=== PATIENT | female | born 1995 ===

== ENCOUNTER 2025-07-14 14:30 | Outpatient (AMB) | payer MEDICAID, SELFPAY ==
[2025-07-14 14:59] VITALS: BP 118/81; PULSE 76; RESP 16; TEMP 36.6; O2SAT 98; BMI 28.7
--- NOTE | 2025-07-14 14:59 | OBCLNT_ITS ---
Vital Signs 07/14/25 14:59 Height 1.6 m Height Method Stated Weight 73.482 kg Weight Measurement Method Standing Scale BMI 28.7 BP 118/81 Blood Pressure Source Automatic Cuff Blood Pressure Location Left Upper Arm Position Sitting Respiration 16 Pulse 76 Pulse Source Monitor Temp 97.8 F Temp Source Oral Pulse Oximetry (%) 98 Oxygen Delivery Method Room Air Allergies/Home Meds Allergies & Medications Allergies No Known Allergies Allergy (Unknown, Verified 07/14/25 15:00) Medication Reconciliation No Known Home Medications 07/14/25 [History Confirmed 07/14/25] Intake Visit Data Collection New Patient or Established: Established Patient (seen at [facility] within 3 years) Reason for Visit:: INITIAL CARE Seen by Clinical Staff ONLY (RN/MA): No Cathode Washer Required: No Do You Feel Safe at Home: Yes Authorities Contacted: N/A PCP or OBGYN visit in last 3 months: Yes Hx Now: Yes Are you currently on any form of Control: No Last menstrual period: 05/26/25 Pain Present Currently: Yes Pain Location: Abdomen and Back Pain Scale Used: Stern-Muir/Numerical Pain scale:: 6 Smoking Status Smoking Status: Never smoker Questionnaires Covid-19 Vaccine Questionnaire Has patient been vacinated for Covid-19 Have you been vacinated for Covid-19: Yes PHQ-9 PHQ-2 Over the last 2 weeks, how often have you been bothered by any of the following problems? 1. Little interest or pleasure in doing things: not at all 2. Feeling down, depressed, or hopeless: not at all Total score: 0 PHQ-9 3. Trouble falling or staying asleep, or sleeping too much: Not at all 4. Feeling tired or having little energy: Not at all 5. Poor appetite or overeating: Not at all 6. Feeling bad about yourself - or that you are a failure or have let yourself or your family down: Not at all 7. Trouble concentrating on things, such as reading the newspaper or watching television: Not at all 8. Moving or speaking so slowly that other people could have noticed? - Or the opposite - being so fidgety or restless that you have been moving around a lot more than usual: not at all 9. Thoughts that you would be better off or of hurting yourself in some way: Not at all Total score: 0 Source: Developed by Drs. Faisal Maldonado, Katherine Hays, Robbie Kevin and colleagues, with an educational zeke from [employer]. Depression screen completed yes Social History Living Situation History Marital Status: Lives With: Family Housing: Apartment Tobacco History Smoking Status: Never smoker Second Hand Smoke Exposure: No Alcohol History Alcohol Intake: Former Alcohol Intake Frequency: holidays/special occasions only Domestic Abuse History Do You Feel Safe at Home: Yes History of Present Illness HPI Narrative 29-year-old 6 para 3 SAB 2 for OBI. Patient's last miscarriage she had was at 16 weeks in 2022. Her last period May 26, 2025. She reports that her periods are every month lasting about 3 to 4 days. Patient complains of some spotting pink when she wipes. A history of anxiety and depression. She does no t see a therapist or counselor. She is not taking any medication. She reports feeling tired today but otherwise she is happy about the and doing well. She is here with her partner she reports that she was vaping prior to the and she stopped. She also drank mixed drinks occasionally. But noted with the . She is seeing denies any existence of chronic illness. And today she reports that nausea and vomiting is doing well. 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 Having symptoms pink spotting when she wipes. Denies any other complaints. Denies nausea and vomiting. History of miscarriage at 16 weeks in 2022. So patient is worried. I did an office sono and showed her that the baby had a heart rate. OB panel today . I made a referral to Dr. Arnold for NT and sono for viability. Discussed SAB precautions. Also did a beta quant. Continue prenatals. Discussed ER precautions and SAB precautions and return in 2 weeks Menstrual History Menstrual reliability: definite Flow: normal Menstrual regularity: regular Monthly: Yes Age at menarche: 12 On control pills at conception: No Associated symptoms (LMP): Reports nausea, fatigue and breast tenderness OB History : 6 Para: 3 Hx Total # of Abortions (Spontaneous & Elective): 2 # of Living Children: 3 Delivery History 1st : Child's name: N/A date: 09/11/14 sex: female Gestational age at delivery (weeks): 40 Delivery type: vaginal Delivery complications: NONE History of depression before or after : No 2nd : Child's name: N/A date: 11/29/16 sex: female Gestational age at delivery (weeks): 40 Delivery type: vaginal Delivery complications: NONE History of depression before or after : No 3rd : Child's name: N/A date: 03/26/20 sex: male Delivery type: vaginal Delivery complications: NONE History of depression before or after : No Infection History & Risk Evaluation History of STDs: none Genetic Screening & History Genetic Screening/Teratology Counseling - Includes patient, baby's father, or anyone in either family with: 1. Patient's age 35 years or older as of estimated date of delivery: No 2. Thalassemia (Arabic, Palestinian, Mediterranean, or Background); MCV less than 80: No 3. Neural Tube Defect (Meningomyelocele, Spina Bifida, or Anencephaly): No 4. Congenital Heart Defect: No 5. Down Syndrome: No 6. Varun-Sachs (Ashkenazi Amish, Cajun, Turkish Argentine): No 7. John Disease (Ashkenazi Amish): No 8. Familial Dysautonomia (Ashkenazi Amish): No 9. Sickle Cell Disease or Trait (): No 10. Hemophilia or other blood disorders: No 11. Muscular Dystrophy: No 12. Cystic Fibrosis: No 13. Uriah's Chorea: No 14. Mental Retardation/Autism: No 15. Other inherited genetic or chromosomal disorder: No 16. Maternal Metabolic Disorder (EG,TYPE 1 Diabetes, PKU): No 17. Patient or baby's father had a child with defects not listed above: No 18. Recurrent loss or a stillbirth: No 19. Medications (including supplements, vitamins, herbs or otc drugs)/illicit/recreational drugs/alcohol since last menstrual period: No 20. Any other: No Infection History 1. Live with someone with TB or exposed to TB: No 2. Rash or viral illness since last menstrual period: No 3. Hepatitis B,C: No Other (see comments) Source: [employer] Review of Systems Review of Systems Systems Reviewed: All systems reviewed, normal except as documented Constitutional Constitutional: Reports fatigue Gastrointestinal Gastrointestinal: Reports nausea Endocrine Endocrine: Reports fatigue Exam General Limitations: no limitations General Appearance: alert, in no apparent distress, comfortable, cooperative, healthy appearing, well developed and well groomed Head Head exam: atraumatic, normocephalic and normal inspection Chest Chest inspection: Present normal inspection and symmetric chest wall rise Resp Respiratory exam: Present normal lung sounds bilaterally Card Cardiovascular exam: Present regular rate, normal rhythm and normal heart sounds Abdominal Abdominal exam: Present soft and normal bowel sounds Psych Psychiatric exam: Present normal affect and normal mood Office Procedures OB Clinic LOC & Office Proc's Nursing/Assessment Patient Status: Established Patient OB Clinic Nursing Assessment: Medication Reconciliation, Update PMH in EMR and Vital Signs OB Clinic Coordination of Care: Complex Care and Chronic Disease 1-5, Consent,records obtained, informed consent, Education Simp Pt/Fam, Lab and Imaging orders, Results/Orders obtained and Staff clarify orders Special Needs: Heart tones Established Patient Charge Established Patient Point Assignment: 135 Established Patient Point Charge: EP Level 4 (120-155) Assessment & Plan Diagnosis / Problem List (1) Encounter for supervision of high risk in first trimester, antepartum: Status: Acute (2) Threatened : Status: Acute Plan Referral to [facility] for viability sono and NT. Discussed SAB precautions. Increase rest. No heavy lifting. OB panel with beta quant and drug screen. Increase fluids no sex. Return in 2 weeks for OB check Additional Plan Follow Up: 2 Weeks (obc)
== END 2025-07-14 15:24 | disposition home or self-care (01) ==
LOC: HODSOBC 14:30
PROVIDERS: Supervising Provider Advanced Practice Midwife; Visit Provider Advanced Practice Midwife
DX: O09.891 Supervision of other high risk pregnancies, first trimester (principal); O20.0 Threatened abortion; O09.291 Supervision of pregnancy with other poor reproductive or obstetric history, first trimester; Z87.59 Personal history of other complications of pregnancy, childbirth and the puerperium; Z3A.01 Less than 8 weeks gestation of pregnancy
CPT/HCPCS: 99214; G0463

== ENCOUNTER → 2025-07-26 | Outpatient (CLI) | payer MEDICAID, SELFPAY ==
--- NOTE | 2025-07-26 15:25 | XR_ITS ---
Examination: Complete OB ultrasound, less than 14 weeks, transabdominal Date and time of exam: July 26, 2025, 1558 hrs. Indications: Pelvic cramping beginning 2 weeks ago, clinical diagnosis threatened . Technique: Obstetrical ultrasound images less than 14 weeks performed via transabdominal imaging Findings: A normal shaped single intrauterine gestation is present in the uterus. CRL 2.5 cm corresponds to 9 weeks 1 day gestational age. Cardiac motion 176 BPM Ultrasonographic survey of visible and placental structures unremarkable. Amniotic fluid volume appears appropriate for this estimated gestational age. Right ovary 2.9 cm arterial flow. Left ovary 3.9 cm arterial flow 13 mm corpus luteum cyst Impression: Viable intrauterine gestation 9 weeks 1 day No subchorionic hemorrhage.
== END | disposition home or self-care (01) ==
PROVIDERS: PCP Advanced Practice Midwife; Referring Provider Advanced Practice Midwife; Visit Provider Advanced Practice Midwife
DX: O20.0 Threatened abortion (principal); O09.91 Supervision of high risk pregnancy, unspecified, first trimester; Z3A.09 9 weeks gestation of pregnancy
CPT/HCPCS: 76801

== ENCOUNTER 2025-08-04 14:45 | Outpatient (AMB) | payer MEDICAID, SELFPAY ==
[2025-08-04 15:00] VITALS: BP 118/72; PULSE 90; RESP 16; TEMP 36.2; O2SAT 98; BMI 28.9
--- NOTE | 2025-08-04 15:00 | OBCLNT_ITS ---
Vital Signs 08/04/25 15:00 Height 1.6 m Height Method Stated Weight 74.049 kg Weight Measurement Method Standing Scale BMI 28.9 BP 118/72 Blood Pressure Source Automatic Cuff Blood Pressure Location Left Upper Arm Position Sitting Respiration 16 Pulse 90 Pulse Source Monitor Temp 97.2 F Temp Source Oral Pulse Oximetry (%) 98 Oxygen Delivery Method Room Air Allergies/Home Meds Allergies & Medications Allergies No Known Allergies Allergy (Unknown, Verified 08/04/25 15:00) Medication Reconciliation No Known Home Medications 07/14/25 [History Confirmed 08/04/25] Intake Visit Data Collection New Patient or Established: Established Patient (seen at [facility] within 3 years) Reason for Visit:: OBC Seen by Clinical Staff ONLY (RN/MA): No Practice Support Specialist Required: No Do You Feel Safe at Home: Yes Authorities Contacted: N/A PCP or OBGYN visit in last 3 months: Yes Date of Last PCP or OBGYN visit: 07/14/25 Hx Now: Yes Are you currently on any form of Control: No Pain Present Currently: No Pain Scale Used: Stern-Muir/Numerical Pain scale:: 0 Smoking Status Smoking Status: Never smoker Questionnaires Covid-19 Vaccine Questionnaire Has patient been vacinated for Covid-19 Have you been vacinated for Covid-19: No PHQ-9 PHQ-2 Over the last 2 weeks, how often have you been bothered by any of the following problems? 1. Little interest or pleasure in doing things: not at all 2. Feeling down, depressed, or hopeless: not at all Total score: 0 PHQ-9 3. Trouble falling or staying asleep, or sleeping too much: Not at all 4. Feeling tired or having little energy: Not at all 5. Poor appetite or overeating: Not at all 6. Feeling bad about yourself - or that you are a failure or have let yourself or your family down: Not at all 7. Trouble concentrating on things, such as reading the newspaper or watching television: Not at all 8. Moving or speaking so slowly that other people could have noticed? - Or the opposite - being so fidgety or restless that you have been moving around a lot more than usual: not at all 9. Thoughts that you would be better off or of hurting yourself in some way: Not at all Total score: 0 If you checked off any problems, how difficult have these problems made it for you to do your work, take care of things at home, or get along with other people?: not difficult at all Source: Developed by Drs. Faisal Maldonado, Katherine Hays, Robbie Kevin and colleagues, with an educational zeke from [employer]. 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 Having symptoms pink spotting when she wipes. Denies any other complaints. Denies nausea and vomiting. History of miscarriage at 16 weeks in 2022. So patient is worried. I did an office sono and showed her that the baby had a heart rate. OB panel today . I made a referral to Dr. Arnold for NT and sono for viability. Discussed SAB precautions. Also did a beta quant. Continue prenatals. Discussed ER precautions and SAB precautions and return in 2 weeks 08/04/25 -?-?-?-?-?-?-?-?-?-?-?-?- 10w 0d 74.049 kg 118/72 absent unknown 10 125 absent No OB complaints. Doing well. No complaints of nausea and vomiting. No bleeding, no leaking, no cramping NIPT and carrier screen today. Referral to [facility] is pending. Discussed SAB precautions. Increase fluids continue prenatals and return in 4 weeks OB check KENIA Calculator Estimated Delivery Date Method Current WG Current Estimate 03/02/26 LMP (Certain) 10w 0d Other Estimates 02/27/26 Ultrasound #1 10w 3d Notes Visit Date: 08/04/25 Last Updated by: Lila Estevez CNM OB panel: O+,abs-, rpr;;nr, rub NI, HBSAG-,HIV-,HC-, GC/CT-, UA- Visit Date: 07/14/25 Last Updated by: Lila Estevez CNM 29 yo . lMP: 05/26/25. EDC: 03/02/26 Office Procedures OB Clinic LOC & Office Proc's Nursing/Assessment Patient Status: Established Patient OB Clinic Nursing Assessment: Medication Reconciliation, Update PMH in EMR and Vital Signs OB Clinic Coordination of Care: Education Complex Pt/Fam, Consent,records obtained, informed consent, Lab and Imaging orders, Results/Orders obtained and Staff clarify orders Special Needs: Heart tones Established Patient Charge Established Patient Point Assignment: 115 Established Patient Point Charge: EP Level 3 (80-115) Assessment & Plan Diagnosis / Problem List (1) Encounter for supervision of high risk in first trimester, antepartum: Status: Acute Plan NIPT and carrier screen today. Discussed SAB precautions. Ultrasound for MFM pending. Increase fluids. Continue prenatals. Return in 4 weeks OB check Additional Plan Follow Up: 4 Weeks (obc)
== END 2025-08-04 15:56 | disposition home or self-care (01) ==
LOC: HODSOBC 14:45
PROVIDERS: Supervising Provider Advanced Practice Midwife; Visit Provider Advanced Practice Midwife
DX: O09.91 Supervision of high risk pregnancy, unspecified, first trimester (principal); Z3A.10 10 weeks gestation of pregnancy
CPT/HCPCS: 99213; G0463

== ENCOUNTER 2025-09-13 09:00 | Emergency (ER) | payer MEDICAID, SELFPAY ==
[2025-09-13 09:00] VITALS: BMI 28.5
[2025-09-13 09:24] VITALS: BP 102/66; PULSE 80; RESP 18; TEMP 36.6; O2SAT 99
--- NOTE | 2025-09-13 09:28 | XR_ITS ---
Examination: Complete OB ultrasound greater than 14 weeks Date and time of exam: September 13, 2025, 1049 hours INDICATIONS: Pelvic pressure and cramping today Findings: Viable intrauterine single fetus with single amniotic sac presentation transverse Cardiac motion 152 bpm Placenta anterior grade 1 Umbilical cord insertion seen Amniotic fluid index adequate Cervix 4.8 cm Right ovary 2.7 cm arterial flow Left ovary 2.6 cm arterial flow. Composite estimated gestational age based on BPD, head circumference, abdominal circumference, femur length is 16 weeks 4 days Estimated weight 155 g. Survey of intracranial anatomy, spinal anatomy, abdominal anatomy, four-chamber heart performed with no abnormalities identified. Impression: Viable intrauterine gestation transverse presentation.
--- NOTE | 2025-09-13 09:29 | EDNOTE_ITS ---
ED OB Contraction Preg RMI/HPI General Chief complaint: General Adult/Misc Complain Stated complaint: 15 wks preg, cramping and pressure Time Seen by Provider: 09/13/25 09:16 Source: patient Arrival date/time: 09/13/25 09:00 29-year-old female with no known medical history presents to the emergency room with a chief complaint of lower pelvic cramping and pressure x 2 days. Patient is currently 15 weeks . She is a . Patient denies any vaginal bleeding Mode of arrival: ambulatory Limitations: no limitations Related Data Home Medications ?Medication ?Instructions ?Recorded ?Confirmed No Known Home Medications 07/14/2507/19 Allergies Allergy/AdvReac Type Severity Reaction Status Date / Time No Known Allergies Allergy Unknown Verified 08/04/25 15:00 Review of Systems Review of Systems Systems Reviewed: All systems reviewed, normal except as documented Constitutional Constitutional: Reports system reviewed and no additional complaints, except as documented, Denies fatigue, Denies fever(s), Denies headache(s) and Denies weakness Eyes Eyes: Reports system reviewed and no additional complaints, except as documented, Denies blurry vision and Denies change in vision ENT Ears, Nose, Mouth, and Throat: Reports system reviewed and no additional complaints, except as documented, Denies otalgia, Denies headache(s), Denies nasal congestion, Denies throat swelling and Denies vertigo Cardiovascular Cardiovascular: Reports system reviewed and no additional complaints, except as documented, Denies chest pain, Denies dyspnea and Denies dyspnea on exertion Respiratory Respiratory: Reports system reviewed and no additional complaints, except as documented, Denies chest congestion, Denies cough, Denies dyspnea, Denies dyspnea on exertion and Denies wheezing Gastrointestinal Gastrointestinal: Reports system reviewed and no additional complaints, except as documented, Reports abdominal pain, Reports cramping, Denies nausea and Denies vomiting Genitourinary Genitourinary: Reports system reviewed and no additional complaints, except as documented, Denies abnormal vaginal bleeding and Reports pelvic pain Musculoskeletal Musculoskeletal: Reports system reviewed and no additional complaints, except as documented and Denies back pain Integumentary/Breasts Skin/Breast: Reports system reviewed and no additional complaints, except as documented and Denies wounds Neurologic Neurologic: Reports system reviewed and no additional complaints, except as documented, Denies confusion, Denies headache(s), Denies lack of coordination, Denies vertigo and Denies weakness Psychiatric Psychiatric: Reports system reviewed and no additional complaints, except as documented, Denies anxiety, Denies confusion, Denies depression, Denies paranoia, Denies suicidal ideation and Denies tactile hallucinations Endocrine Endocrine: Reports system reviewed and no additional complaints, except as documented and Denies fatigue Hematologic/Lymphatic Hematologic/Lymphatic: Reports system reviewed and no additional complaints, except as documented and Denies lymphadenopathy Allergic/Immunologic Allergic/Immunologic: Reports system reviewed and no additional complaints, except as documented, Denies throat swelling, Denies urticaria and Denies wheezing Past Medical History Past Medical History NEUROLOGIC: Negative Neurological Disorders or Seizures CARDIAC: Negative Cardiac Disorders or Congestive Heart Failure RESPIRATORY: Negative Chronic Obstructive Pulmonary Disease (COPD) or Asthma GASTROINTESTINAL: Negative Gastrointestinal Disorders or Hepatitis GENITOURINARY: Negative Genitourinary Disorders or Renal Disease REPRODUCTIVE: Positive Previous Pregnancies (6) MUSCULOSKELETAL: Negative Musculoskeletal Disorders ENDOCRINE: Negative Endocrine Disorders, Diabetes Mellitus Type 1 or Diabetes Mellitus Type 2 HEMATOLOGIC: Negative Blood Disorders or Sickle Cell Disease PSYCHO/SOCIAL: Positive Depression and Anxiety; Negative Depression OTHER HISTORY: Negative Hospitalization, Autoimmune Disease, Down Syndrome, Developmental Delay, Shingles, Falls, Blood Transfusions, Blood Transfusion R eaction, Anesthesia Reactions, Organ Transplant, Chemotherapy, Radiation Therapy, Hyperbaric Therapy, MRSA, VRSA, Vancomycin-Resistant Enterococci, Human Immunodeficiency Virus (HIV), Chicken Pox, Measles, Mumps, Rubella (Citizen Of [place] Measles), Pertussis, Clostridium Difficile or Cancer Family History FAMILY HISTORY: Positive Family Cardiac Disorders (FATHER HAS EITHER HIGH OR LOW BP); Negative Family Psychiatric Problems, Family Respiratory Disorders, Family Gastrointestinal Problems, Family Cancer, Family Surgery or Family Anesthesia Reaction Surgical History SURGICAL: Negative Cardiac Surgery, Endocrine Surgery, Ear Surgery, Abdominal Surgery, Nephrectomy, Joint Replacement, Neurologic Surgery, Section or Organ Transplant Social History SMOKING STATUS: Never smoker SECOND HAND EXPOSURE: No ED Exam General Limitations: Present no limitations General appearance: Present alert and in no apparent distress Head Head exam: Present atraumatic Eye Eye exam: Present normal appearance, PERRL and EOMI ENT ENT exam: Present normal exam, normal oropharynx and mucous membranes moist Neck Neck exam: Present normal inspection, full ROM and trachea midline Chest Chest inspection: Present normal inspection and symmetric chest wall rise Respiratory Respiratory exam: Present normal lung sounds bilaterally Cardiovascular Cardiovascular exam: Present regular rate, normal rhythm and normal heart sounds Abdominal Exam Abdominal exam: Present soft, tenderness and normal bowel sounds; Absent distention, guarding or rebound Abdominal tenderness: Present suprapubic and mild Extremities Exam Extremities exam: Present normal inspection and full ROM Back Exam Back exam: Present normal inspection and full ROM Neurological Exam Neurological exam: Present alert, oriented X3 and CN II-XII intact Psychiatric Psychiatric exam: Present normal affect and normal mood Skin Skin exam: Present warm, dry, intact and normal color Course Quality Measures none Orders Category Date Time Status US OB >= 14 weeks Fetus Stat Exams 09/13/25 09:28 Completed ABO/RH Type Stat Lab 09/13/25 09:34 Completed Beta HCG,Quantitative Stat Lab 09/13/25 09:34 Completed CBC Stat Lab 09/13/25 09:34 Completed CMP [Comprehensive Metabolic Panel] Stat Lab 09/13/25 09:34 Completed UA [Urinalysis] Stat Lab 09/13/25 09:50 Completed Vital Signs Vital signs: Vital Signs Temperature 98 F 09/13/25 09:24 Pulse Rate 80 09/13/25 09:24 Respiratory Rate 18 09/13/25 09:24 Blood Pressure 102/66 09/13/25 09:24 Pulse Oximetry (%) 99 09/13/25 09:24 Oxygen Delivery Method Room Air 09/13/25 09:24 OB/Uterine Contractions MDM Narrative MDM Narrative:: 29-year-old female with no known medical history presents to the emergency room with a chief complaint of lower pelvic cramping and pressure x 2 days. Patient is currently 15 weeks . She is a . Patient denies any vaginal bleeding Patient is hemodynamically stable and in no apparent distress Physical examination shows bilateral pelvic cramping with palpation Ultrasound OB shows a viable intrauterine gestation at 16 weeks. heart tones are at 152 bpm. hCG levels are 41,000 Patient was discharged and educated to follow-up with primary care provider in the next 24 to 48 hours and return to the emergency room for any evidence of worsening signs or symptoms Patient data External records reviewed:: [facility] previous records Clinical information provided by:: patient Social determinants that could affect healthcare access:: none Patient has the following chronic illnesses:: No chronic illness How is presenting disease/condition affected by chronic disease/condition?: no chronic disease Evaluation data The following diagnostics were reviewed and interpreted by me:: lab results and radiology exam(s) Lab and/or radiology exams considered but not ordered:: Labs and radiology exams considered and ordered Interpretation Summary: Ultrasound OB-Findings: Viable intrauterine single fetus with single amniotic sac presentation transverse Cardiac motion 152 bpm Placenta anterior grade 1 Umbilical cord insertion seen Amniotic fluid index adequate Cervix 4.8 cm Right ovary 2.7 cm arterial flow Left ovary 2.6 cm arterial flow. Composite estimated gestational age based on BPD, head circumference, abdominal circumference, femur length is 16 weeks 4 days Estimated weight 155 g. Survey of intracranial anatomy, spinal anatomy, abdominal anatomy, four-chamber heart performed with no abnormalities identified. Impression: Viable intrauterine gestation transverse presentation. Medications / Prescriptions Medications or Prescriptions considered but not ordered:: No medication given Medication administrations:: No medication given Consultations Consultation(s) initiated? (list below): No Diagnosis OB Contractions Differential Diagnosis: pre-eclampsia, eclampsia and other (Threatened /abdominal cramping) Most likely diagnosis given after review of the tests above:: Abdominal cramping affecting Admission Indicated Admission indicated?: not indicated Explain why admission is indicated or not indicated:: N/A Admission Request Was there a request for admission?: No Disposition Plan Disposition Plan: Discharge Discharge Attestation Discharge Attestation: The patient and all family members were given an opportunity to ask questions and understood the discharge instructions. Discharge instructions specifically effects, indications for sooner follow up or return to the emergency department, and the expected course of current diagnosis. Patient condition: Stable Discharge Plan Plan Patient Disposition: HOME (Self Care) Discharge Disposition comment: Stable Prescriptions/Referrals Prescriptions/Med Rec: No Action No Known Home Medications Referrals: Yandy Islas PA-C [Primary Care Provider] - In 1 week Problem List Clinical Impression: Abdominal cramping affecting Patient/Caregiver Discharge Instructions Education Materials: Abdominal Pain Additional Instructions: Please follow-up with your primary care provider or PHARMACY HELPER in the next 24 to 48 hours Your ultrasound shows a in good standing For any evidence of worsening signs or symptoms return to emergency room immediately Print Language: Georgian Stand Alone Forms: [employer] Award Info., Work/School Release, Patient Portal Info Letter PA/JADA Supervising Physician SANDRA/JADA Supervising Physician: Dr. Caldwell
[2025-09-13 10:00] LABS: Basophils # (Auto) 0.0 Thou/mm3 (0.0-0.2); Basophils % (Auto) 0 % (0-2.5); Eosinophils # (Auto) 0.0 Thou/mm3 (0.0-0.5); Eosinophils % (Auto) 0 % (0-10); Hematocrit 37.4 % (36.0-46.0); Hemoglobin 12.8 g/dL (12.0-16.0); Immature Granulocytes Auto 0.02 Thou/mm3 (0.00-0.00); Lymphocytes # (Auto) 1.7 Thou/mm3 (1.0-4.8); Lymphocytes % (Auto) 21 % (10-50); Mean Corpuscular HGB Conc 34.2 g/dl (31.0-37.0); Mean Corpuscular Hemoglobin 31.5 pg (25.0-35.0); Mean Corpuscular Volume 92 fL (80-100); Monocytes # (Auto) 0.5 Thou/mm3 (0.0-0.8); Monocytes % (Auto) 6 % (0-12); Neutrophils # (Auto) 5.9 Thou/mm3 (1.8-7.7); Neutrophils % (Auto) 72 % (37-80); Nucleated Red Blood Cell # 0.00 Thou/mm3 (0.00-0.00); Nucleated Red Blood Cell % 0 /100 WBC (0); Platelet Count 183 Thou/mm3 (140-440); RDW Standard Deviation 39.3 fL (36.4-46.3); Red Blood Count 4.06 Miln/mm3 (4.00-5.20); White Blood Count 8.2 Thou/mm3 (3.6-11.0)
[2025-09-13 10:01] LABS: Collection Type, Urine Clean Catch
[2025-09-13 10:09] LABS: Bilirubin,Urine Negative (Negative); Blood,Urine Negative (Negative); Color,Urine Lt-Yellow (Lt Yel-Yel); Glucose, Urine Negative (Negative); Ketones,Urine 1+ (Negative); Leukocyte Esterase,Urine Positive (Negative); Nitrite,Urine Negative (Negative); PH,Urine 6.5 (5.0-7.0); Protein,Urine Negative (Neg - Trace); RBC,Urine 1 /hpf (0-3); Specific Gravity,Urine 1.015 (1.001-1.035); Squamous Epithelial Cell,Urine 24 /hpf (0-5); Urobilinogen,Urine Negative mg/dL (0.0-1.0); WBC,Urine 3 /hpf (0-5)
[2025-09-13 10:40] LABS: Alanine Aminotransferase 9 U/L (10-49); Albumin, Serum 4.2 gm/dL (3.5-5.0); Albumin/Globulin Ratio 1.8 (1.2-2.2); Alkaline Phosphatase 42 U/L (46-116); Anion Gap 9 (7-16); Aspartate Amino Transferase 17 U/L (0-34); BUN/Creatinine Ratio 10 Ratio (12-20); Bilirubin,Total 0.5 mg/dL (0.3-1.2); Blood Urea Nitrogen < 5 mg/dL (9-23); Calcium 9.0 mg/dL (8.3-10.6); Calcium (Corrected) 9.0 mg/dL (8.5-10.1); Carbon Dioxide 22.9 mMol/L (20.0-31.0); Chloride 106 mMol/L (98-107); Creatinine (Component) 0.5 mg/dL (0.6-1.3); Estimated Creatinine Clearance 167.9 mL/min (>60); Globulin 2.3 gm/dL (2.3-3.5); Glucose 82 mg/dL (74-106); Osmolality,Calculated 271 (275-295); Potassium 3.8 mMol/L (3.4-5.1); Sodium 138 mMol/L (136-145); Total Protein 6.5 gm/dL (5.7-8.2); eGFR > 60 See Note
[2025-09-13 10:56] LABS: Beta HCG,Quantitative 41301 mIU/mL (<5.0)
[2025-09-13 11:02] LABS: Clarity,Urine Hazy (Clear/Hazy)
== END 2025-09-13 12:06 | disposition home or self-care (01) ==
PROVIDERS: Emergency Provider Nurse Practitioner Family; PCP Physician Assistant
DX: O26.892 Other specified pregnancy related conditions, second trimester (principal); R10.9 Unspecified abdominal pain; Z3A.15 15 weeks gestation of pregnancy
CPT/HCPCS: 36415; 76805; 80053; 81001; 84702; 85025; 86900; 86901; 99283

== ENCOUNTER 2025-09-15 09:57 | Emergency (ER) | payer MEDICAID, SELFPAY ==
[2025-09-15 09:58] VITALS: BMI 28.5
[2025-09-15 10:14] VITALS: BP 103/69; PULSE 75; RESP 18; TEMP 36.9; O2SAT 98
[2025-09-15 10:16] VITALS: BMI 27.7
--- NOTE | 2025-09-15 10:21 | PD.EDVAGBL ---
ED OB Contraction Preg RMI/HPI General Chief complaint: Abdominal Pain Stated complaint: LOWER ABD CRAMPING WITH VAG. BLEEDING; 16 WEEKS OB Time Seen by Provider: 09/15/25 10:21 Arrival date/time: 09/15/25 09:57 RME / HPI RME / HPI Narrative: See [facility] for Dr. Ashton's HPI documentation. Related Data Previous Rx's ?Medication ?Instructions ?Recorded acetaminophen 500 mg tablet 1,000 mg (2 x 500 mg) PO Q6H PRN 09/15/25 (Tylenol Extra Strength) pain #60 tabs Allergies Allergy/AdvReac Type Severity Reaction Status Date / Time No Known Allergies Allergy Unknown Verified 09/15/25 10:02 Review of Systems Review of Systems Systems Reviewed: All systems reviewed, normal except as documented Past Medical History Past Medical History REPRODUCTIVE: Positive Previous Pregnancies (6) PSYCHO/SOCIAL: Positive Depression and Anxiety Family History FAMILY HISTORY: Positive Family Cardiac Disorders (FATHER HAS EITHER HIGH OR LOW BP) Social History SMOKING STATUS: Never smoker SECOND HAND EXPOSURE: No ED Exam Narrative Physical exam: See [facility] for Dr. Ashton's physical exam documentation. Course Quality Measures none Orders Category Date Time Status US OB >= 14 weeks Fetus Stat Exams 09/15/25 10:43 Completed Beta HCG,Quantitative Stat Lab 09/15/25 10:56 Completed CBC Stat Lab 09/15/25 10:56 Completed Ondansetron Inj [Zofran Inj] Med 09/15/25 10:22 Discontinued 4 mg IVP X1 ONE Sodium Chloride 0.9% 1000 ml [Ns] 1,000 ml Med 09/15/25 10:22 Discontinued IV 999 mls/hr Vital Signs Vital signs: Vital Signs Temperature 98.4 F 09/15/25 10:14 Pulse Rate 75 09/15/25 10:14 Respiratory Rate 18 09/15/25 10:14 Blood Pressure 103/69 09/15/25 10:14 Pulse Oximetry (%) 98 09/15/25 10:14 Oxygen Delivery Method Room Air 09/15/25 10:14 Pulse ox is 98% on room air which is adequate. Vaginal Bleeding MDM Narrative MDM Narrative: This section includes all my notes and documentations, including HPI, PE, and ED course. Wesley Ashton MD HPI: 29-year-old female with vaginal spotting this morning. She is currently , 16 -17 weeks. No pain or cramping. No other complaints. ROS: All negative except as documented in HPI. Physical Exam: General: Alert and oriented. No acute distress when remaining still. Eyes: Conjunctivae and lids clear. ENT: No nasal congestion. Neck: Supple. Heart: RRR. Lungs: No respiratory distress. Good air movement. No rhonchi, wheezing, rales. Abdomen: Soft and nontender. Normal bowel sounds. No distension. No rebound or guarding. Back: No CVA tenderness. Skin: Warm and dry. Neuro: Alert and oriented X 3. I reviewed all diagnostic test results: My review of the ultrasound report is 16 5/7 week IUP. Blood tests are unremarkable, except beta HCG 35,783. At this point, diagnoses include: Threatened miscarriage Recommended supportive care. Based on my best medical judgment, made decision no further evaluation or treatment indicated at this time. Patient understands and agrees to the discharge instructions customized and printed, see below. Discharge Instructions from Dr. Ashton printed for you: 1.? After evaluation, your baby is doing well with good cardiac activity. 2.? Based on ultrasound today, gestational age is close to 17 weeks. 3.? Only time will tell what will happen. If your symptoms, including bleeding, worsen, you can have a miscarriage. If your symptoms stop, you can have successful . 4.? If you do have a miscarriage, we won't be able to save your baby. Under 20-24 weeks, we can't save the baby. 5.? No sexual activity until cleared by a doctor taking care of you. 6.? Continue current care with your OB provider. 7.? Seek immediate medical care with intolerable pain, extremely heavy vaginal bleeding (soaking more than 3 pads per hour), or with any concerns. Wesley Ashton MD Patient data External records reviewed:: [facility] previous records Clinical information provided by:: patient Social determinants that could affect healthcare access:: none Patient has the following chronic illnesses:: None How is presenting disease/condition affected by chronic disease/condition?: no chronic disease Evaluation data The following diagnostics were reviewed and interpreted by me:: lab results and radiology exam(s) Lab and/or radiology exams considered but not ordered:: None Interpretation Summary: I reviewed all diagnostic test results: My review of the ultrasound report is 16 5/7 week IUP. Blood tests are unremarkable, except beta HCG 35,783. Medications / Prescriptions Medications or Prescriptions considered but not ordered:: None Medication administrations:: Medication Administration History Discontinued Medications Sodium Chloride (Ns) 1,000 mls @ 999 mls/hr IV .Q1H1M ONE Stop: 09/15/25 11:22 Last Admin: 09/15/25 10:50 Dose: Not Given Documented By: Non-Admin Reason: Cancelled by Provider Ondansetron HCl (Ondansetron Inj 2 Mg/Ml Inj 2 Ml) 4 mg IVP X1 ONE; Protocol Stop: 09/15/25 10:23 Last Admin: 09/15/25 10:50 Dose: Not Given Documented By: Non-Admin Reason: Cancelled by Provider No treatment here. Consultations Consultation(s) initiated? (list below): No Diagnosis Vaginal Bleeding Differential Diagnosis: missed , threatened , incomplete , ectopic without intrauterine and vaginal bleeding Most likely diagnosis given after review of the tests above:: Threatened miscarriage Admission Indicated Admission indicated?: not indicated Explain why admission is indicated or not indicated:: With no condition needing emergent intervention, there was no indication for admission. Admission Request Was there a request for admission?: No Disposition Plan Disposition Plan: Discharge Discharge Attestation Discharge Attestation: The patient and all family members were given an opportunity to ask questions and understood the discharge instructions. Discharge instructions specifically effects, indications for sooner follow up or return to the emergency department, and the expected course of current diagnosis. Patient condition: Stable Discharge Plan Plan Patient Disposition: HOME (Self Care) Prescriptions/Referrals Prescriptions/Med Rec: New acetaminophen [Tylenol Extra Strength] 500 mg tablet 1,000 mg PO Q6H PRN (Reason: pain) Qty: 60 0RF Referrals: Yandy Islas PA-C [Primary Care Provider] - In 1 week Problem List Clinical Impression: Threatened miscarriage Patient/Caregiver Discharge Instructions Discharge Activity: activity as tolerated Education Materials: ED Possible Miscarriage ... Additional Instructions: Discharge Instructions from Dr. Ashton printed for you: 1.? After evaluation, your baby is doing well with good cardiac activity. 2.? Based on ultrasound today, gestational age is close to 17 weeks. 3.? Only time will tell what will happen. If your symptoms, including bleeding, worsen, you can have a miscarriage. If your symptoms stop, you can have successful . 4.? If you do have a miscarriage, we won't be able to save your baby. Under 20-24 weeks, we can't save the baby. 5.? No sexual activity until cleared by a doctor taking care of you. 6.? Continue current care with your OB provider. 7.? Seek immediate medical care with intolerable pain, extremely heavy vaginal bleeding (soaking more than 3 pads per hour), or with any concerns. Print Language: Singaporean Stand Alone Forms: [employer] Award Info., Patient Portal Info Letter
--- NOTE | 2025-09-15 10:43 | XR_ITS ---
Examination: Complete OB ultrasound greater than 14 weeks Date and time of exam: September 15, 2025, 1214 hours INDICATIONS: Vaginal bleeding today Findings: Viable intrauterine single fetus with single amniotic sac presentation breech Cardiac motion 155 bpm Placenta anterior grade 1 Umbilical cord insertion 3 vessels seen Amniotic fluid adequate spine posterior Cervix 2.5 cm Ovaries obscured by bowel gas. Composite estimated gestational age based on BPD, head circumference, abdominal circumference, femur length is 16 weeks 5 days Estimated weight 155 g. Survey of intracranial anatomy, spinal anatomy, abdominal anatomy, four-chamber heart performed with no abnormalities identified. Impression: Viable intrauterine gestation in breech presentation.
[2025-09-15 11:18] LABS: Basophils # (Auto) 0.0 Thou/mm3 (0.0-0.2); Basophils % (Auto) 0 % (0-2.5); Eosinophils # (Auto) 0.1 Thou/mm3 (0.0-0.5); Eosinophils % (Auto) 1 % (0-10); Hematocrit 37.7 % (36.0-46.0); Hemoglobin 12.9 g/dL (12.0-16.0); Immature Granulocytes Auto 0.04 Thou/mm3 (0.00-0.00); Lymphocytes # (Auto) 2.0 Thou/mm3 (1.0-4.8); Lymphocytes % (Auto) 24 % (10-50); Mean Corpuscular HGB Conc 34.2 g/dl (31.0-37.0); Mean Corpuscular Hemoglobin 30.9 pg (25.0-35.0); Mean Corpuscular Volume 90 fL (80-100); Monocytes # (Auto) 0.5 Thou/mm3 (0.0-0.8); Monocytes % (Auto) 6 % (0-12); Neutrophils # (Auto) 5.5 Thou/mm3 (1.8-7.7); Neutrophils % (Auto) 68 % (37-80); Nucleated Red Blood Cell # 0.00 Thou/mm3 (0.00-0.00); Nucleated Red Blood Cell % 0 /100 WBC (0); Platelet Count 197 Thou/mm3 (140-440); RDW Standard Deviation 38.8 fL (36.4-46.3); Red Blood Count 4.17 Miln/mm3 (4.00-5.20); White Blood Count 8.1 Thou/mm3 (3.6-11.0)
== END 2025-09-15 13:20 | disposition home or self-care (01) ==
PROVIDERS: Emergency Provider Emergency Medicine; PCP Physician Assistant
DX: O20.0 Threatened abortion (principal); Z3A.17 17 weeks gestation of pregnancy
CPT/HCPCS: 36415; 76805; 84702; 85025; 99283

== ENCOUNTER 2025-09-17 22:43 | Observation (INO) | payer MEDICAID, SELFPAY ==
[2025-09-17 22:58] VITALS: BP 103/87; PULSE 76; RESP 18; TEMP 37.4; O2SAT 100; BMI 27.6
--- NOTE | 2025-09-17 23:06 | XR_ITS ---
Examination: Complete OB ultrasound greater than 14 weeks Date and time of exam: September 17, 2025, 1137 hours INDICATIONS: Vaginal pain and pressure beginning 8 hours ago Findings: Intrauterine gestation cephalic presentation, no heart tone IMPRESSION: Limited study Intrauterine gestation in cephalic presentation, no heart tones
--- NOTE | 2025-09-17 23:06 | PD.EDRME ---
Rapid Medical Screening Exam RME Arrival date/time: 09/17/25 22:43 This is a case of 29-year-old female with no medical history came in in the emergency room due to vaginal bleeding and pelvic cramping and stated that he her water broke patient is 18 weeks Chief Complaint: Vaginal Bleeding Time Seen by Provider: 09/17/25 22:46 Vital signs: Vital Signs Temperature 99.3 F 09/17/25 22:58 Pulse Rate 76 09/17/25 22:58 Respiratory Rate 18 09/17/25 22:58 Blood Pressure 103/87 H 09/17/25 22:58 Pulse Oximetry (%) 100 09/17/25 22:58 Oxygen Delivery Method Room Air 09/17/25 22:58 Exam: Abdominal exam is benign nonsurgical no guarding no rebound no rigidity no tenderness Clinical Impression: Vaginal bleeding in
[2025-09-17 23:33] LABS: Basophils # (Auto) 0.0 Thou/mm3 (0.0-0.2); Basophils % (Auto) 0 % (0-2.5); Eosinophils # (Auto) 0.1 Thou/mm3 (0.0-0.5); Eosinophils % (Auto) 1 % (0-10); Hematocrit 36.4 % (36.0-46.0); Hemoglobin 12.6 g/dL (12.0-16.0); Immature Granulocytes Auto 0.04 Thou/mm3 (0.00-0.00); Lymphocytes # (Auto) 2.8 Thou/mm3 (1.0-4.8); Lymphocytes % (Auto) 28 % (10-50); Mean Corpuscular HGB Conc 34.6 g/dl (31.0-37.0); Mean Corpuscular Hemoglobin 31.5 pg (25.0-35.0); Mean Corpuscular Volume 91 fL (80-100); Monocytes # (Auto) 0.7 Thou/mm3 (0.0-0.8); Monocytes % (Auto) 7 % (0-12); Neutrophils # (Auto) 6.3 Thou/mm3 (1.8-7.7); Neutrophils % (Auto) 64 % (37-80); Nucleated Red Blood Cell # 0.00 Thou/mm3 (0.00-0.00); Nucleated Red Blood Cell % 0 /100 WBC (0); Platelet Count 193 Thou/mm3 (140-440); RDW Standard Deviation 38.5 fL (36.4-46.3); Red Blood Count 4.00 Miln/mm3 (4.00-5.20); White Blood Count 9.9 Thou/mm3 (3.6-11.0)
[2025-09-18] VITALS (24 sets, daily range): BP systolic 83–136; BP diastolic 43–93; PULSE 64–109; RESP 14–100; TEMP 36.2–36.9; O2SAT 94–100
[2025-09-18 00:05] LABS: Alanine Aminotransferase 10 U/L (10-49); Albumin, Serum 4.2 gm/dL (3.5-5.0); Albumin/Globulin Ratio 2.1 (1.2-2.2); Alkaline Phosphatase 44 U/L (46-116); Anion Gap 10 (7-16); Aspartate Amino Transferase 15 U/L (0-34); BUN/Creatinine Ratio 8 Ratio (12-20); Bilirubin,Total 0.3 mg/dL (0.3-1.2); Blood Urea Nitrogen < 5 mg/dL (9-23); Calcium 8.9 mg/dL (8.3-10.6); Calcium (Corrected) 8.9 mg/dL (8.5-10.1); Carbon Dioxide 22.8 mMol/L (20.0-31.0); Chloride 105 mMol/L (98-107); Creatinine (Component) 0.6 mg/dL (0.6-1.3); Estimated Creatinine Clearance 137.9 mL/min (>60); Globulin 2.0 gm/dL (2.3-3.5); Glucose 82 mg/dL (74-106); Osmolality,Calculated 271 (275-295); Potassium 3.7 mMol/L (3.4-5.1); Sodium 138 mMol/L (136-145); Total Protein 6.2 gm/dL (5.7-8.2); eGFR > 60 See Note
[2025-09-18] MEDS: MORPHINE SULF INJ 4 MG/ML VIAL IVP ×2 (00:15→01:21)
[2025-09-18] MEDS: ONDANSETRON INJ 2 MG/ML INJ 2 ML 4 MG IVP (00:16)
--- NOTE | 2025-09-18 00:18 | EDNOTE_ITS ---
ED OB Contraction Preg RMI/HPI General Chief complaint: Vaginal Bleeding Stated complaint: VAGINAL BLEEDING Time Seen by Provider: 09/17/25 22:46 Arrival date/time: 09/17/25 22:43 RME / HPI RME / HPI Narrative: 09/17/25 22:43 This is a case of 29-year-old female with no medical history came in in the emergency room due to vaginal bleeding and pelvic cramping and stated that he her water broke patient is [address] LOPEZ MAIN ED EVALUATION: 29 y/o EGA 18 weeks presents to ED c/o heavy vaginal bleeding and pelvic cramping x 1 week, worse today s/p her water breaking. Patient reports last ended due to miscarriage. US performed on 09/15/2025 demonstrated a viable intrauterine gestation in breech presentation. Exam: Abdominal exam is benign nonsurgical no guarding no rebound no rigidity no tenderness Impression: Vaginal bleeding in Related Data Previous Rx's ?Medication ?Instructions ?Recorded acetaminophen 500 mg tablet 1,000 mg (2 x 500 mg) PO Q 6H PRN 09/15/25 (Tylenol Extra Strength) pain #60 tabs Allergies Allergy/AdvReac Type Severity Reaction Status Date / Time No Known Allergies Allergy Unknown Verified 09/17/25 22:45 Review of Systems Review of Systems Systems Reviewed: All systems reviewed, normal except as documented Past Medical History Past Medical History REPRODUCTIVE: Positive Previous Pregnancies (5) PSYCHO/SOCIAL: Positive Depression and Anxiety Family History FAMILY HISTORY: Positive Family Cardiac Disorders (FATHER HAS EITHER HIGH OR LOW BP) ED Exam Narrative Physical exam: Generally patient is alert in mild to moderate distress secondary to pain. Heart regular rate and rhythm, lungs clear to auscultation equal bilaterally, abdomen soft bowel sounds present nondistended suprapubic abdominal tenderness without rebound. Pelvic exam showed a 16-week fetus within the vaginal vault which was removed. The placenta was not delivered. Patient progressed to pass a large amount of blood clots out of the vagina., Neurologic exam shows patient had a [place] Coma Scale 15, skin is cool pale and dry Course Quality Measures none Orders Category Date Time Status Insert IV NOW Care 09/18/25 00:19 Active US OB >= 14 weeks Fetus Stat Exams 09/17/25 23:06 Completed ABO/RH Type Stat Lab 09/17/25 23:10 Completed Beta HCG,Quantitative Stat Lab 09/17/25 23:10 Completed CBC Stat Lab 09/17/25 23:10 Completed CBC Stat Lab 09/18/25 01:24 Completed CMP [Comprehensive Metabolic Panel] Stat Lab 09/17/25 23:10 Completed Misoprostol [Cytotec] Med 09/18/25 01:58 Discontinued 400 mcg PO X1 ONE Morphine* Inj Med 09/18/25 00:10 Discontinued 4 mg .ROUTE .STK-MED ONE Morphine* Inj Med 09/18/25 00:09 Discontinued 4 mg IVP X1 ONE Morphine* Inj Med 09/18/25 00:41 Discontinued 4 mg IVP X1 ONE OXYTOCIN in NS 20 units [Pitocin 20 units in Ns] Med 09/18/25 00:17 Active 20 unit in 1,000 ml IV 500 mls/hr Ondansetron Inj [Zofran Inj] Med 09/18/25 00:11 Discontinued 4 mg .ROUTE .STK-MED ONE Ondansetron Inj [Zofran Inj] Med 09/18/25 00:14 Discontinued 4 mg IVP X1 ONE Ringers Lactated 1000 ml [Lactated Ringers] 1,000 ml Med 09/18/25 00:18 D iscontinued IV 999 mls/hr Vital Signs Vital signs: Vital Signs Temperature 99.3 F 09/17/25 22:58 Pulse Rate 76 09/17/25 22:58 Respiratory Rate 18 09/17/25 22:58 Blood Pressure 103/87 H 09/17/25 22:58 Pulse Oximetry (%) 100 09/17/25 22:58 Oxygen Delivery Method Room Air 09/17/25 22:58 OB/Uterine Contractions MDM Narrative MDM Narrative:: Scribe Attestation: I, Kika Samaniego, am scribing for and in the presence of Dr. Lopez. Provider Notation: Although this document has been carefully reviewed, there may still be some phonetic and other typographical errors. These errors are purely grammatical due to imperfections in the software program and should not be construed in any way to compromise the substance of the patient's medical care during this visit. Patient spontaneously passed the 16-week fetus within the vaginal vault which was removed. The placenta was not removed. Patient immediately was started on Pitocin drip at 20 units over 2-hour period of time. Original hemoglobin was 12.6 and 2-1/2 hours later it was 9.5. Patient received morphine 4 mg IV x 2 for pain. Platelet count is normal. Patient did in fact have an ultrasound done prior to the miscarriage which showed products of conception within the cervical canal. It was a 16-week fetus. Patient is a 5 para 3. She last had a similar incomplete miscarriage in 2022 of a 15-week fetus requiring dilation and curettage at that time. I spoke with Dr. Walker at approximately 3 AM. Patient is still passing clot. Vital signs are stable. Dr. Walker is currently given orders to nurse for admission. Patient data External records reviewed:: [facility] previous records (Reviewed prior ED records from 09/15/25. Patient was seen for Threatened miscarriage.) Clinical information provided by:: patient Social determinants that could affect healthcare access:: none Patient has the following chronic illnesses:: Anxiety, Depression How is presenting disease/condition affected by chronic disease/condition?: uneffected by Evaluation data The following diagnostics were reviewed and interpreted by me:: lab results and radiology exam(s) Lab and/or radiology exams considered but not ordered:: None Interpretation Summary: RADIOLOGY US: Findings: Intrauterine gestation cephalic presentation, no heart tone IMPRESSION: Limited study Intrauterine gestation in cephalic presentation, no heart tones Medications / Prescriptions Medications or Prescriptions considered but not ordered:: None Medication administrations:: Medication Administration History Oxytocin/Sodium Chloride (Pitocin 20 Units In Ns) 20 unit in 1,000 mls @ 500 mls/hr IV .Q2H QUEENIE Stop: 10/18/25 00:16 Last Admin: 09/18/25 00:50 Dose: 500 mls/hr Documented By: DARREL Co-signed By: [email or web address] Discontinued Medications Lactated Ringer's (Lactated Ringers) 1,000 mls @ 999 mls/hr IV .Q1H1M ONE Stop: 09/18/25 01:18 Last Infusion: 09/18/25 01:54 Dose: Infused Documented By: Admin: 09/18/25 00:31 Dose: 999 mls/hr Documented By: DARREL Misoprostol (Misoprostol 200 Mcg Tablet) 400 mcg PO X1 ONE Stop: 09/18/25 01:59 Last Admin: 09/18/25 02:28 Dose: 400 mcg Documented By: ERINN Morphine Sulfate (Morphine Sulf Inj 4 Mg/Ml Vial) 4 mg IVP X1 ONE Stop: 09/18/25 00:10 Last Admin: 09/18/25 00:15 Dose: 4 mg Documented By: DARREL Morphine Sulfate (Morphine Sulf Inj 4 Mg/Ml Vial) Confirm Administered Dose 4 mg .ROUTE .STK-MED ONE Stop: 09/18/25 00:11 Last Admin: 09/18/25 00:18 Dose: Not Given Documented By: DARREL Non-Admin Reason: Duplicate Medication on eMAR Morphine Sulfate (Morphine Sulf Inj 4 Mg/Ml Vial) 4 mg IVP X1 ONE Stop: 09/18/25 00:42 Last Admin: 09/18/25 01:21 Dose: 4 mg Documented By: DARREL Ondansetron HCl (Ondansetron Inj 2 Mg/Ml Inj 2 Ml) 4 mg IVP X1 ONE; Protocol Stop: 09/18/25 00:15 Last Admin: 09/18/25 00:16 Dose: 4 mg Documented By: DARREL Ondansetron HCl (Ondansetron Inj 2 Mg/Ml Inj 2 Ml) Confirm Administered Dose 4 mg .ROUTE .STK-MED ONE Stop: 09/18/25 00:12 Last Admin: 09/18/25 00:18 Dose: Not Given Documented By: DARREL Non-Admin Reason: Duplicate Medication on eMAR See above if any Consultations Consultation(s) initiated? (list below): Yes Consultation #1 (Physician, Specialty, Details): Dr. Walker made aware of the patient?s HPI, PMHx, lab and/or radiology results. Discussed treatment plan. Followed recommendations. Time: 01:54 Diagnosis OB Contractions Differential Diagnosis: hemorrhage, premature labor, pre-eclampsia, eclampsia and other (Spontaneous ) Most likely diagnosis given after review of the tests above:: None Admission Indicated Explain why admission is indicated or not indicated:: None Admission Request Was there a request for admission?: Yes Admission Attestation Admission request attestation: Discussed case with [] from Hospitalist service regarding admission. Discussed patients ED course, exam findings, labs, and radiology results. The Hospitalist [agrees,declines] to accept the patient for admission. Disposition Plan Disposition Plan: Admit Critical Care Time Critical Care Time Critical Care Time: Yes Total Critical Care Time (min.): 35 Attestation: Excluding other billable procedures Discharge Plan Plan Patient Disposition: Admit Acute Care w/in Hospital Prescriptions/Referrals Prescriptions/Med Rec: No Action acetaminophen [Tylenol Extra Strength] 500 mg tablet 1,000 mg PO Q6H PRN (Reason: pain) Qty: 60 0RF Referrals: Yandy Islas PA-C [Primary Care Provider] - In 1 week Problem List Clinical Impression: Incomplete Patient/Caregiver Discharge Instructions Print Language: Nepali Stand Alone Forms: [employer] Award Info., Patient Portal Info Letter
--- NOTE | 2025-09-18 00:20 | PC.NURSE ---
PT WAS MOVED TO OLD TRIAGE FOR OB BED APPROX AT 0000. DR. LOPEZ AT BEDSIDE AT 0005 WITH VITALS OF 93 HEART RATE, 100%, RESPIRATIONS OF 20, AND BP OF 136/93. PROVIDER EXPLAINED SITUATION TO PATIENT. PROVIDER PERFORMED CERVICAL EXAM. AT 00:10 FETUS WAS DELIVERED. VITALS AT 0010 ARE 109 HEART RATE, 100%, 25 RESPIRATIONS, AND A BLOOD PRESSURE OF 136/93. APPROX AT 0005 VERBAL ORDERS FOR 4MG OF MORPINE IVP AND 4MG OF ZOFRAN WERE GIVEN TO THIS NURSE. PER PROVIDER TO START OXYTONCIN. PER PROVIDER TO NOTIFY HIM WHEN PATIENT PASSES TISSUE OR CLOTS LOOK FOR PLACENTA. PATIENT IS BEING CLEANED BY ED STAFF. MOVED FROM OLD TRIAGE TO ROOM 10.
[2025-09-18 00:30] LABS: Beta HCG,Quantitative 34842 mIU/mL (<5.0)
[2025-09-18] MEDS: RINGERS LACTATED 1000 ML 1,000 ML 999 ML IV (00:31)
[2025-09-18] MEDS: OXYTOCIN in NS 20 units 20 UNIT/1,000 ML BAG 500 UNIT IV (00:50)
--- NOTE | 2025-09-18 00:51 | PC.NURSE ---
APPROX AT 0040 PT STATES THAT SHE FEELS LIKE SHES GONNA PASS OUT . PROVIDER WAS NOTIFIED. DR. LOPEZ AT BEDSIDE 0042. HE STATES THERE IS NOTHING TO WORRY ABOUT . VITAL SIGNS ARE STABLE.
--- NOTE | 2025-09-18 00:59 | PC.NURSE ---
PT WAS CHANGED. NEW BRIEF AND CLEANED PT. OLD BRIEF WAS SHOWN TO PROVIDERED AND NOTED MULTIPLE RED BLOOD CLOTS WITH NO PLACENTA
[2025-09-18 01:52] LABS: Basophils # (Auto) 0.0 Thou/mm3 (0.0-0.2); Basophils % (Auto) 0 % (0-2.5); Eosinophils # (Auto) 0.1 Thou/mm3 (0.0-0.5); Eosinophils % (Auto) 1 % (0-10); Hematocrit 27.4 % (36.0-46.0); Hemoglobin 9.5 g/dL (12.0-16.0); Immature Granulocytes Auto 0.07 Thou/mm3 (0.00-0.00); Lymphocytes # (Auto) 4.3 Thou/mm3 (1.0-4.8); Lymphocytes % (Auto) 30 % (10-50); Mean Corpuscular HGB Conc 34.7 g/dl (31.0-37.0); Mean Corpuscular Hemoglobin 31.5 pg (25.0-35.0); Mean Corpuscular Volume 91 fL (80-100); Monocytes # (Auto) 0.9 Thou/mm3 (0.0-0.8); Monocytes % (Auto) 6 % (0-12); Neutrophils # (Auto) 9.2 Thou/mm3 (1.8-7.7); Neutrophils % (Auto) 63 % (37-80); Nucleated Red Blood Cell # 0.00 Thou/mm3 (0.00-0.00); Nucleated Red Blood Cell % 0 /100 WBC (0); Platelet Count 174 Thou/mm3 (140-440); RDW Standard Deviation 38.3 fL (36.4-46.3); Red Blood Count 3.02 Miln/mm3 (4.00-5.20); White Blood Count 14.6 Thou/mm3 (3.6-11.0)
--- NOTE | 2025-09-18 01:56 | PC.NURSE ---
DR. LOPEZ AT BEDSIDE APPROX AT 0150. PT WAS CHANGED. NEW BRIEF WAS APPLIED
[2025-09-18] MEDS: RINGERS LACTATED 1000 ML 1,000 ML 50 ML IV ×2 (04:06→16:50)
[2025-09-18] MEDS: OXYTOCIN in NS 20 units 20 UNIT/1,000 ML BAG 100 UNIT IV (04:06)
--- NOTE | 2025-09-18 04:14 | PC.NURSE ---
APPROX AT 0300 PT WAS CLEANED AND NEW BRIEF APPLIED
--- NOTE | 2025-09-18 06:48 | PC.NURSE ---
THIS RN ATTEMPTED TO GET CYTOTEC FROM [facility] BECAUSE WE DONT NOT CARRY THAT IN TH ED. FOR SOME REASON IT WAS NOT ALLOWING ME TO PULL THE MEDICATION. DR. AVILES WAS CALLED ABOUT SITUATION AND SHE STATED IT WAS OKAY TO WAIT FOR PHARMACY TO BRING IT DOWN.
[2025-09-18 07:53] LABS: Basophils # (Auto) 0.0 Thou/mm3 (0.0-0.2); Basophils % (Auto) 0 % (0-2.5); Eosinophils # (Auto) 0.0 Thou/mm3 (0.0-0.5); Eosinophils % (Auto) 0 % (0-10); Hematocrit 24.0 % (36.0-46.0); Immature Granulocytes Auto 0.06 Thou/mm3 (0.00-0.00); Lymphocytes # (Auto) 2.2 Thou/mm3 (1.0-4.8); Lymphocytes % (Auto) 20 % (10-50); Mean Corpuscular HGB Conc 34.2 g/dl (31.0-37.0); Mean Corpuscular Hemoglobin 31.9 pg (25.0-35.0); Mean Corpuscular Volume 93 fL (80-100); Monocytes # (Auto) 0.7 Thou/mm3 (0.0-0.8); Monocytes % (Auto) 6 % (0-12); Neutrophils # (Auto) 8.0 Thou/mm3 (1.8-7.7); Neutrophils % (Auto) 73 % (37-80); Nucleated Red Blood Cell # 0.00 Thou/mm3 (0.00-0.00); Nucleated Red Blood Cell % 0 /100 WBC (0); Platelet Count 157 Thou/mm3 (140-440); RDW Standard Deviation 39.9 fL (36.4-46.3); Red Blood Count 2.57 Miln/mm3 (4.00-5.20); White Blood Count 11.0 Thou/mm3 (3.6-11.0)
[2025-09-18 07:59] LABS: Hemoglobin 8.2 g/dL (12.0-16.0)
--- NOTE | 2025-09-18 09:05 | ESHP_ITS ---
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 MIRELES is a 29 year old female , who was at 18 weeks of and had an incomplete delivered the fetus in the ED, and the placenta has retained with vaginal bleeding which has been, somewhat controlled by IV Pitocin drip, patient also received 400 mcg of Cytotec, but was not able to pass the placenta, she is counseled currently for procedure in the OR for manual removal of placenta and dilatation and curettage and she may need blood transfusion, risk benefits of the procedure and options all discussed with the patient patient is willing to proceed with the procedure Patient was given risks and benefits risks to include possible injury to the uterus uterine perforation injury to the bladder ureter or surrounding organs scarring of the endometrium and also possible need for blood transfusion she is willing to go ahead with the procedure and the nursing knitting supervisor has been called and the team is getting ready to come in to take her to the OR ,all questions answered Review of Systems Review of Systems Systems Reviewed: All systems reviewed, normal except as documented Meds Home Medications and Allergies Allergies Allergy/AdvReac Type Severity Reaction Status Date / Time No Known Allergies Allergy Unknown Verified 09/17/25 22:45 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 Temp Pulse Resp BP Pulse Ox O2 Del Method 98.1 F 66 17 101/60 98 Room Air 09/18/25 08:40 09/18/25 08:40 09/18/25 08:40 09/18/25 08:40 09/18/25 08:40 09/18/25 08:40 Narrative Exam Alert and oriented x 3 no shortness of breath Pain no chest pain no palpitations Chest clear bilaterally no additional sounds, no wheezing no rales CVS regular rate and rhythm No CVAT Abdomen nontender, normal bowel sounds No guarding no rigidity No hernias pelvic exam deferred to OR mild bleeding on the pad [employer] JOIST - Results Labs 09/18/25 06:29 09/17/25 23:10 Labs: Short CBC 09/17/25 09/18/25 09/18/25 Range/Units 23:10 01:24 06:29 WBC 9.9 14.6 H D 11.0 (3.6-11.0) Thou/mm3 Hgb 12.6 9.5 L D 8.2 L (12.0-16.0) g/dL Hct 36.4 27.4 L 24.0 L (36.0-46.0) % Plt Count 193 174 157 (140-440) Thou/mm3 BMP 09/17/25 23:10 Sodium 138 Potassium 3.7 Chloride 105 Carbon Dioxide 22.8 BUN < 5 L Creatinine 0.6 Glucose 82 Calcium 8.9 Liver Function 09/17/25 Range/Units 23:10 Total Bilirubin 0.3 (0.3-1.2) mg/dL AST 15 (0-34) U/L ALT 10 (10-49) U/L Alkaline Phosphatase 44 L (46-116) U/L Albumin 4.2 (3.5-5.0) gm/dL ABG Interpretation Additional comments: patient is O Rh positive Impressions Impression: 29 years old 5 para 3 with an incomplete at 18 weeks of her EDC was March 02, 2026, her current was she was seeing Lila Estevez CNM for her care her ED notes ans labs and imaging reviewed . plan to go to OR now for Manual removal of placenta, possible D&C and possible may need blood transfusion Assessment and Plan Assessment and plan (1) Incomplete : Status: Acute (2) Retained placenta: Status: Acute Additional Assessment & Plan Additional Plan: Plan manual removal of placenta, Dilation and curettage and possible blood transfusion in the OR as an emergency procedure Quality Measures Quality Measures none (2) Retained placenta Qualifiers: Retained placenta detail: unspecified Qualified Code(s): O73.0 - Retained placenta without hemorrhage
[2025-09-18] MEDS: ceFAZolin/D5W 1 GM IVPB 1 GM/50 ML BAG IV (09:49)
--- NOTE | 2025-09-18 10:38 | PD.GYNPROC ---
Operative Note - [employer] Procedure Date of procedure: 09/18/25 Procedure Performed: removal of placenta and Dilation and curettage Indication: retained placenta and vaginal bleeding Pre-Op diagnosis: retained placenta incomplete Post-Op diagnosis: same Anesthesia type: General Procedure description: After an informed consent patient was taken to the operating room, she was placed in dorsal lithotomy position and was prepped and draped in the usual sterile fashion. Bladder was straight catheterized. Patient received SSI prophylaxis Time out done right after patients prep and right after general anesthesia the placenta delivered spontaneously . Pelvic exam shows a open cervical os /POC felt in uterus / uterus is 16 weeks size Iv pitocin is on going speculum placed posteriorly and anterior cervical lip held with ring forceps. Since on pelvic exam I could still feel POC in the uterus a suction D&C was done with number 12 size plastic cannula POC removed Gritty sensation felt all around the endometrial cavity Procedure completed instruments removed Counts are correct EBL is 100 cc POC and placenta sent for HPE tolerated the procedure well Specimen: other (placenta and Products of conception) Estimated blood loss (ml): 100 Findings: see procedure details Complications: none Surgical staff Torsten Torres Operation Date: 09/18/25 10:15 <No data on this case meets the specified criteria> Diagnosis Discharge Diagnosis (1) Incomplete : Status: Acute (2) Retained placenta: Status: Acute (3) Vaginal bleeding: Status: Acute (4) Acute blood loss anemia: Status: Acute Problem List Completed Was Problem List Reviewed/Reconciled?: Yes (2) Retained placenta Qualifiers: Retained placenta detail: unspecified Qualified Code(s): O73.0 - Retained placenta without hemorrhage
--- NOTE | 2025-09-18 10:39 | SUR.PHASEI ---
1039 patient arrived to recovery resting comfortably in [facility], LMA in place, oxygen in place via nasal cannula inserted into LMA, breathing unlabored, vital signs stable, dressing intact to vaginal area; peripad, report received from Torsten LENTZ and Maya CRAWFORD
[2025-09-18 11:21] LABS: Basophils # (Auto) 0.0 Thou/mm3 (0.0-0.2); Basophils % (Auto) 0 % (0-2.5); Eosinophils # (Auto) 0.1 Thou/mm3 (0.0-0.5); Eosinophils % (Auto) 1 % (0-10); Hematocrit 21.0 % (36.0-46.0); Immature Granulocytes Auto 0.02 Thou/mm3 (0.00-0.00); Lymphocytes # (Auto) 2.2 Thou/mm3 (1.0-4.8); Lymphocytes % (Auto) 36 % (10-50); Mean Corpuscular HGB Conc 33.8 g/dl (31.0-37.0); Mean Corpuscular Hemoglobin 30.9 pg (25.0-35.0); Mean Corpuscular Volume 91 fL (80-100); Monocytes # (Auto) 0.4 Thou/mm3 (0.0-0.8); Monocytes % (Auto) 7 % (0-12); Neutrophils # (Auto) 3.4 Thou/mm3 (1.8-7.7); Neutrophils % (Auto) 56 % (37-80); Nucleated Red Blood Cell # 0.00 Thou/mm3 (0.00-0.00); Nucleated Red Blood Cell % 0 /100 WBC (0); Platelet Count 115 Thou/mm3 (140-440); RDW Standard Deviation 39.2 fL (36.4-46.3); Red Blood Count 2.30 Miln/mm3 (4.00-5.20); White Blood Count 6.1 Thou/mm3 (3.6-11.0)
--- NOTE | 2025-09-18 11:22 | SUR.PHASEI ---
1122 patient transported via gurney to room 368 without incident
[2025-09-18 11:24] LABS: Hemoglobin 7.1 g/dL (12.0-16.0)
[2025-09-18] MEDS: IBUPROFEN TAB 600 MG TABLET PO ×2 (13:12→21:30)
[2025-09-18 16:48] LABS: Basophils # (Auto) 0.0 Thou/mm3 (0.0-0.2); Basophils % (Auto) 0 % (0-2.5); Eosinophils # (Auto) 0.0 Thou/mm3 (0.0-0.5); Eosinophils % (Auto) 0 % (0-10); Hematocrit 27.2 % (36.0-46.0); Hemoglobin 9.3 g/dL (12.0-16.0); Immature Granulocytes Auto 0.03 Thou/mm3 (0.00-0.00); Lymphocytes # (Auto) 0.7 Thou/mm3 (1.0-4.8); Lymphocytes % (Auto) 8 % (10-50); Mean Corpuscular HGB Conc 34.2 g/dl (31.0-37.0); Mean Corpuscular Hemoglobin 31.4 pg (25.0-35.0); Mean Corpuscular Volume 92 fL (80-100); Monocytes # (Auto) 0.1 Thou/mm3 (0.0-0.8); Monocytes % (Auto) 1 % (0-12); Neutrophils # (Auto) 7.6 Thou/mm3 (1.8-7.7); Neutrophils % (Auto) 90 % (37-80); Nucleated Red Blood Cell # 0.00 Thou/mm3 (0.00-0.00); Nucleated Red Blood Cell % 0 /100 WBC (0); Platelet Count 137 Thou/mm3 (140-440); RDW Standard Deviation 39.6 fL (36.4-46.3); Red Blood Count 2.96 Miln/mm3 (4.00-5.20); White Blood Count 8.4 Thou/mm3 (3.6-11.0)
--- NOTE | 2025-09-18 18:13 | PC.NURSE ---
spoke with Dr. Walker re post transfusion: pt's hgb and bp 85/49, hr 66, infusing LR at 50 mL/hr now
[2025-09-19] VITALS (7 sets, daily range): BP systolic 83–110; BP diastolic 52–59; PULSE 61–89; RESP 16–17; TEMP 36.2; O2SAT 95–100
--- NOTE | 2025-09-19 08:13 | PD.GYNDS ---
Planned Discharge Date 09/19/25 DS: Providers Provider Date of admission: 09/18/25 03:16 Primary care physician: Yandy Islas PA-C Admitting Provider: Irish Walker MD Attending Provider on Admission: Irish Walker MD Attending Provider on DC: Irish Walker MD Discharging Provider: Irish Walker MD DS: Diagnosis Discharge Diagnosis (1) Acute blood loss anemia: Status: Acute (2) Incomplete : Status: Acute (3) Retained placenta: Status: Acute (4) S/P D&C (status post dilation and curettage): Status: Acute Problem List Completed Was Problem List Reviewed/Reconciled?: Yes Hospital Course Hospital Course Hospital course: Ms. MIRELES is a 29 year old female , who was at 18 weeks of and had an incomplete delivered the fetus in the ED, and the placenta has retained with vaginal bleeding which has been, somewhat controlled by IV Pitocin drip, patient also received 400 mcg of Cytotec, but was not able to pass the placenta, she is counseled currently for procedure in the OR for manual removal of placenta and dilatation and curettage and she may need blood transfusion, risk benefits of the procedure and options all discussed with the patient patient is willing to proceed with the procedure Patient was given risks and benefits risks to include possible injury to the uterus uterine perforation injury to the bladder ureter or surrounding organs scarring of the endometrium and also possible need for blood transfusion she is willing to go ahead with the procedure and the nursing copy supervisor has been called and the team is getting ready to come in to take her to the OR ,all questions answered/ Patient had a D&C on 09/18/2025 and delivered the placenta in the OR as well received 1 unit PRBC post procedure doing well stayed overnight on 09/18/2025 as her BP was on the low side but afebrile and also no tachycardia and good insight and cooperative Status at Discharge Cognitive/behavioral status at discharge: Reviewed all 14 point review of systems and all is negative except as noted Functional status at discharge: independent ambulation Overall status at discharge: patient is progressing back to baseline Time Spent with Patient Time attestation: Total time spent providing and/or coordinating discharge services: Time spent: Less than 30 minutes 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 Temp Pulse Resp BP Pulse Ox O2 Del Method O2 Flow Rate 97.2 F 79 17 97/53 L 100 Room Air 3 09/19/25 07:52 09/19/25 07:52 09/19/25 07:52 09/19/25 07:52 09/19/25 07:52 09/19/25 07:52 09/18/25 10:54 Narrative Exam alert x3 chest clear CVS RRR NO thromegaly uterus barely palpable Bowel sounds present Abdomen soft no hernias noted/no CVAT No calf tenderness Edema none Discharge Plan Plan Patient Disposition: HOME (Self Care) Prescriptions/Referrals Prescriptions/Med Rec: New ferrous sulfate 325 mg (65 mg iron) tablet 325 mg PO QDAY Qty: 30 0RF ferrous sulfate 325 mg (65 mg iron) tablet 325 mg PO QDAY Qty: 30 0RF ibuprofen 600 mg tablet 600 mg PO Q8H PRN (Reason: pain) Qty: 20 0RF misoprostol [Cytotec] 100 mcg tablet 100 mcg PO QID Qty: 14 0RF No Action acetaminophen [Tylenol Extra Strength] 500 mg tablet 1,000 mg PO Q6H PRN (Reason: pain) Qty: 60 0RF Referrals: Yandy Islas PA-C [Primary Care Provider] Patient/Caregiver Discharge Instructions Discharge Activity: activity as tolerated Other Discharge Activity Instructions:: pelvic rest x 2 weeks follow up her doctor in 2 weeks Ed precautions for vaginal bleeding and fever Education Materials: Understanding Miscarriage: Emotions, Understanding Miscarriage ... Print Language: Vietnamese Stand Alone Forms: [employer] Award Info., Patient Portal Info Letter, Work/Release Restrictions Discharge Order Discharge Orders: Discharge (Routine); Ordered 09/19/25 Ordered By: Irish Walker (3) Retained placenta Qualifiers: Retained placenta detail: unspecified Qualified Code(s): O73.0 - Retained placenta without hemorrhage
[2025-09-19 09:19] LABS: Basophils # (Auto) 0.0 Thou/mm3 (0.0-0.2); Basophils % (Auto) 0 % (0-2.5); Eosinophils # (Auto) 0.0 Thou/mm3 (0.0-0.5); Eosinophils % (Auto) 0 % (0-10); Hematocrit 22.7 % (36.0-46.0); Immature Granulocytes Auto 0.02 Thou/mm3 (0.00-0.00); Lymphocytes # (Auto) 2.0 Thou/mm3 (1.0-4.8); Lymphocytes % (Auto) 29 % (10-50); Mean Corpuscular HGB Conc 34.4 g/dl (31.0-37.0); Mean Corpuscular Hemoglobin 31.5 pg (25.0-35.0); Mean Corpuscular Volume 92 fL (80-100); Monocytes # (Auto) 0.5 Thou/mm3 (0.0-0.8); Monocytes % (Auto) 7 % (0-12); Neutrophils # (Auto) 4.4 Thou/mm3 (1.8-7.7); Neutrophils % (Auto) 64 % (37-80); Nucleated Red Blood Cell # 0.00 Thou/mm3 (0.00-0.00); Nucleated Red Blood Cell % 0 /100 WBC (0); Platelet Count 126 Thou/mm3 (140-440); RDW Standard Deviation 40.0 fL (36.4-46.3); Red Blood Count 2.48 Miln/mm3 (4.00-5.20); White Blood Count 6.9 Thou/mm3 (3.6-11.0)
[2025-09-19 09:21] LABS: Hemoglobin 7.8 g/dL (12.0-16.0)
[2025-09-19] MEDS: IBUPROFEN TAB 600 MG TABLET PO (10:37)
--- NOTE | 2025-09-19 12:02 | PC.NURSE ---
Dr. Walker notified this morning that pt had not had daily labs drawn. Ordered a CBC and after results pt may discharge. MD notified of results and asked for a repeat CBC in 4 hrs. Pt notified DC is on hold per MD.
[2025-09-19 13:43] LABS: Basophils # (Auto) 0.0 Thou/mm3 (0.0-0.2); Basophils % (Auto) 0 % (0-2.5); Eosinophils # (Auto) 0.0 Thou/mm3 (0.0-0.5); Eosinophils % (Auto) 0 % (0-10); Hematocrit 24.3 % (36.0-46.0); Immature Granulocytes Auto 0.04 Thou/mm3 (0.00-0.00); Lymphocytes # (Auto) 2.3 Thou/mm3 (1.0-4.8); Lymphocytes % (Auto) 29 % (10-50); Mean Corpuscular HGB Conc 34.6 g/dl (31.0-37.0); Mean Corpuscular Hemoglobin 31.8 pg (25.0-35.0); Mean Corpuscular Volume 92 fL (80-100); Monocytes # (Auto) 0.5 Thou/mm3 (0.0-0.8); Monocytes % (Auto) 6 % (0-12); Neutrophils # (Auto) 5.0 Thou/mm3 (1.8-7.7); Neutrophils % (Auto) 64 % (37-80); Nucleated Red Blood Cell # 0.00 Thou/mm3 (0.00-0.00); Nucleated Red Blood Cell % 0 /100 WBC (0); Platelet Count 137 Thou/mm3 (140-440); RDW Standard Deviation 41.1 fL (36.4-46.3); Red Blood Count 2.64 Miln/mm3 (4.00-5.20); White Blood Count 7.8 Thou/mm3 (3.6-11.0)
[2025-09-19 13:44] LABS: Hemoglobin 8.4 g/dL (12.0-16.0)
== END 2025-09-19 14:23 | disposition home or self-care (01) ==
LOC: SERX 09-18 03:06 → SERHOLD 09-18 03:55 → S3SX 09-18 08:14
PROVIDERS: Nurse Practitioner Family; Admitting Provider Obstetrics & Gynecology; Emergency Provider Emergency Medicine; PCP Physician Assistant; Visit Provider Obstetrics & Gynecology
PROC: (CPT 58120; principal; 2025-09-18 10:00)
DX: O03.4 Incomplete spontaneous abortion without complication (principal); D62 Acute posthemorrhagic anemia
CPT/HCPCS: 59812; 36415; 76805; 80053; 81001; 84702; 85025; 86850; 86900; 86901; 86923; 96361; 96365; 96366; 96374; 96375; 96376; 99282; A4217; A4649; G0378; J0689; J1100; J1885; J2250; J2270; J2405; J2590; J2704; J3010; J7120; P9016; S0191; A9270